=== PATIENT | female | born 1945 | race Caucasian/White ===

== ENCOUNTER 2023-07-16 11:56 | Inpatient (IN) | payer OTHER ==
[~2023-07-16] VITALS: Ht 165.1 cm; Wt 89.8 kg
[2023-07-16 12:01] VITALS: BP_SYST 118; PULSE 89; RESP 18; TEMP 97.6; O2SAT 98
[2023-07-16] MEDS ORDERED: iohexoL 350 mgI/mL, 100 ML INFUS..BTL IV ONE (12:08)
[2023-07-16 12:46] LABS: BASOPHILS # (AUTO) 0.1 K/uL (0.0-0.2); BASOPHILS % (AUTO) 0.6 % (0.0-2.0); EOSINOPHILS # (AUTO) 0.2 K/uL (0.0-0.4); EOSINOPHILS % (AUTO) 2.2 % (0.0-4.0); HEMATOCRIT 37.7 % (36-48); HEMOGLOBIN 11.7 g/dL (12.0-16.0); LYMPHOCYTES # (AUTO) 1.1 K/uL (1.0-5.5); LYMPHOCYTES % (AUTO) 12.8 % (20.5-51.5); MEAN CORPUSCULAR HEMOGLOBIN 27 pg (27-31); MEAN CORPUSCULAR HGB CONC 31 % (32-36); MEAN CORPUSCULAR VOLUME 85 fL (79.0-98.0); MONOCYTES # (AUTO) 0.4 K/uL (0.0-1.0); MONOCYTES % (AUTO) 4.9 % (1.7-9.3); NEUTROPHILS # (AUTO) 6.7 K/uL (1.8-7.7); NEUTROPHILS % (AUTO) 79.5 % (40.0-70.0); PLATELET COUNT (AUTO) 289 K/uL (130-430); RED BLOOD CELL COUNT(AUTO) 4.44 MIL/uL (4.2-6.2); RED CELL DISTRIBUTION WIDTH 14.7 % (9.0-15.0); WHITE BLOOD COUNT (AUTO) 8.4 K/uL (4.8-10.8)
[2023-07-16 12:51] LABS: ANION GAP 9 (5-15); CALCIUM 9.2 mg/dL (8.4-11.0); CARBON DIOXIDE 25 mmol/L (23-29); CHLORIDE 103 mmol/L (98-107); CREATININE 0.66 mg/dL (0.55-1.30); GLUCOSE 179 mg/dL (74-106); POTASSIUM 3.6 mmol/L (3.5-5.1); SODIUM SERUM 137 mmol/L (136-145); UREA NITROGEN, BLOOD 17 mg/dL (8-21)
[2023-07-16 12:54] LABS: INR 1.1 (0.8-1.2); PROTHROMBIN TIME 10.9 SECS (9.5-12.5)
[2023-07-16 12:57] LABS: ALANINE AMINOTRANSFERASE 15 U/L (12-78); ASPARTATE AMINOTRANSFERASE 16 U/L (10-37); BILIRUBIN,DIRECT 0.1 mg/dL (0.0-0.3); CHOLESTEROL 108 mg/dL (<200); HDL CHOLESTEROL 40 mg/dL (>55); TOTAL BILIRUBIN 0.4 mg/dL (0.0-1.0); TRIGLYCERIDES 89 mg/dL (30-150)
[2023-07-16 12:59] LABS: HEMOGLOBIN A1C 7.22 % (<5.7)
[2023-07-16] MEDS ORDERED: ASPIRIN 325 MG TABLET ONE (13:10)
[2023-07-16] MEDS ORDERED: ASPIRIN 325 MG TABLET PO ONE (13:15)
[2023-07-16] MEDS ORDERED: ONDANSETRON HCL 4 MG/2 ML VIAL IVP PRN (15:45)
[2023-07-16] MEDS ORDERED: ACETAMINOPHEN 325 MG TABLET PO PRN ×2 (15:45)
[2023-07-16] MEDS ORDERED: HYDROcodone/ACETAMIN 5-325 MG TAB (NORCO/ VICODIN) PO PRN ×2 (15:45)
[2023-07-16] MEDS ORDERED: EMPA10TA PO (16:36)
[2023-07-16] MEDS ORDERED: ATOR10TA68 PO (16:36)
[2023-07-16] MEDS ORDERED: LOSA50TA28 PO (16:36)
[2023-07-16] MEDS ORDERED: TIRZ5PEN INJ (16:36)
[2023-07-16] MEDS ORDERED: INSU100V9 SQ (16:36)
[2023-07-16] MEDS ORDERED: LEVO112C4 PO (16:36)
[2023-07-16] MEDS ORDERED: GLIP10TA11 PO (16:36)
[2023-07-16] MEDS ORDERED: METO50TA16 PO (16:36)
[2023-07-16] MEDS ORDERED: METF1000 PO (16:36)
[2023-07-16 18:21] VITALS: BP_SYST 118; PULSE 98; RESP 18; TEMP 97.9; O2SAT 95
[2023-07-16 20:00] VITALS: BP_SYST 120; PULSE 101; RESP 20; TEMP 97.7; O2SAT 100
[2023-07-16 20:41] VITALS: BP_SYST 120; PULSE 101; RESP 20; TEMP 97.7
[2023-07-17 00:33] VITALS: BP_SYST 115; PULSE 96; RESP 19; TEMP 97.8; O2SAT 100
[2023-07-17] MEDS ORDERED: ACETAMINOPHEN 500 MG TABLET PO PRN (02:45)
[2023-07-17 04:43] VITALS: RESP 20; TEMP 97.8
[2023-07-17 07:42] LABS: BASOPHILS % (AUTO) 0.4 % (0.0-2.0); EOSINOPHILS # (AUTO) 0.2 K/uL (0.0-0.4); HEMATOCRIT 37.9 % (36-48); LYMPHOCYTES # (AUTO) 1.3 K/uL (1.0-5.5); LYMPHOCYTES % (AUTO) 10.7 % (20.5-51.5); MEAN CORPUSCULAR HEMOGLOBIN 27 pg (27-31); MEAN CORPUSCULAR HGB CONC 32 % (32-36); MEAN CORPUSCULAR VOLUME 84 fL (79.0-98.0); MONOCYTES # (AUTO) 0.6 K/uL (0.0-1.0); MONOCYTES % (AUTO) 5.1 % (1.7-9.3); NEUTROPHILS # (AUTO) 9.7 K/uL (1.8-7.7); NEUTROPHILS % (AUTO) 81.8 % (40.0-70.0); PLATELET COUNT (AUTO) 322 K/uL (130-430); RED BLOOD CELL COUNT(AUTO) 4.52 MIL/uL (4.2-6.2); RED CELL DISTRIBUTION WIDTH 15.3 % (9.0-15.0); WHITE BLOOD COUNT (AUTO) 11.9 K/uL (4.8-10.8)
[2023-07-17 07:47] VITALS: BP_SYST 128; PULSE 93; RESP 18; TEMP 98
[2023-07-17 07:55] LABS: ALANINE AMINOTRANSFERASE 13 U/L (12-78); ANION GAP 9 (5-15); ASPARTATE AMINOTRANSFERASE 21 U/L (10-37); CALCIUM 8.8 mg/dL (8.4-11.0); CARBON DIOXIDE 25 mmol/L (23-29); CHLORIDE 103 mmol/L (98-107); CREATININE 0.51 mg/dL (0.55-1.30); GLUCOSE 158 mg/dL (74-106); POTASSIUM 3.5 mmol/L (3.5-5.1); SODIUM SERUM 137 mmol/L (136-145); TOTAL BILIRUBIN 0.5 mg/dL (0.0-1.0); TOTAL PROTEIN, SERUM 6.2 g/dL (6.4-8.3); UREA NITROGEN, BLOOD 15 mg/dL (8-21)
[2023-07-17] MEDS ORDERED: ATORVASTATIN 10 MG TABLET PO SCH (10:00)
[2023-07-17] MEDS ORDERED: DEXTROSE 50% JECT 50 ML DISP.SYRIN IVP PRN (10:00)
[2023-07-17] MEDS ORDERED: GLUCOSE (DEXTROSE) ORAL GEL -Adults PO PRN (10:00)
[2023-07-17] MEDS: CLOPIDOGREL BISULFATE 75 MG TABLET PO SCH (10:38)
[2023-07-17] MEDS: ASPIRIN 81 MG TAB.CHEW PO SCH (10:38)
[2023-07-17] MEDS ORDERED: ATORVASTATIN 20 MG TABLET PO ONE (11:30)
[2023-07-17] MEDS: INSULIN REGULAR, HUMAN 100 UNITS/ML, 3 ML VIAL (humuLIN R) SUBCUT PRN ×2 (11:40→21:44)
[2023-07-17 15:29] VITALS: BP_SYST 123; PULSE 100; RESP 18; TEMP 98; O2SAT 94
[2023-07-17 19:00] VITALS: BP_SYST 124; PULSE 96; RESP 16; TEMP 97.8; O2SAT 96
[2023-07-17 20:00] VITALS: BP_SYST 124; PULSE 96; RESP 16; TEMP 97.8; O2SAT 96
[2023-07-18 00:20] VITALS: BP_SYST 129; PULSE 93; RESP 20; TEMP 98.5; O2SAT 95
[2023-07-18 05:28] LABS: BASOPHILS % (AUTO) 0.4 % (0.0-2.0); EOSINOPHILS # (AUTO) 0.3 K/uL (0.0-0.4); EOSINOPHILS % (AUTO) 3.2 % (0.0-4.0); HEMATOCRIT 38.7 % (36-48); HEMOGLOBIN 12.4 g/dL (12.0-16.0); LYMPHOCYTES # (AUTO) 0.8 K/uL (1.0-5.5); LYMPHOCYTES % (AUTO) 8.1 % (20.5-51.5); MEAN CORPUSCULAR HEMOGLOBIN 27 pg (27-31); MEAN CORPUSCULAR HGB CONC 32 % (32-36); MEAN CORPUSCULAR VOLUME 83 fL (79.0-98.0); MONOCYTES # (AUTO) 0.7 K/uL (0.0-1.0); MONOCYTES % (AUTO) 6.8 % (1.7-9.3); NEUTROPHILS # (AUTO) 8.4 K/uL (1.8-7.7); NEUTROPHILS % (AUTO) 81.5 % (40.0-70.0); PLATELET COUNT (AUTO) 322 K/uL (130-430); RED BLOOD CELL COUNT(AUTO) 4.67 MIL/uL (4.2-6.2); RED CELL DISTRIBUTION WIDTH 15.3 % (9.0-15.0); WHITE BLOOD COUNT (AUTO) 10.3 K/uL (4.8-10.8)
[2023-07-18 05:37] LABS: ALANINE AMINOTRANSFERASE 14 U/L (12-78); ANION GAP 8 (5-15); ASPARTATE AMINOTRANSFERASE 17 U/L (10-37); CALCIUM 9.6 mg/dL (8.4-11.0); CARBON DIOXIDE 28 mmol/L (23-29); CHLORIDE 103 mmol/L (98-107); GLUCOSE 168 mg/dL (74-106); POTASSIUM 3.2 mmol/L (3.5-5.1); SODIUM SERUM 139 mmol/L (136-145); TOTAL BILIRUBIN 0.6 mg/dL (0.0-1.0); TOTAL PROTEIN, SERUM 6.2 g/dL (6.4-8.3); UREA NITROGEN, BLOOD 10 mg/dL (8-21)
[2023-07-18] MEDS: INSULIN REGULAR, HUMAN 100 UNITS/ML, 3 ML VIAL (humuLIN R) SUBCUT PRN ×2 (06:34→11:40)
[2023-07-18 08:00] VITALS: BP_SYST 132; PULSE 99; RESP 18; TEMP 97.8; O2SAT 96
[2023-07-18] MEDS ORDERED: ATORVASTATIN 20 MG TABLET PO SCH (09:00)
[2023-07-18] MEDS: CLOPIDOGREL BISULFATE 75 MG TABLET PO SCH (09:20)
[2023-07-18] MEDS: ASPIRIN 81 MG TAB.CHEW PO SCH (09:20)
[2023-07-18] MEDS ORDERED: POTASSIUM CHLORIDE 20 MEQ/PKT PACKET PO ONE (11:00)
[2023-07-18] MEDS ORDERED: ATORVASTATIN 20 MG TABLET PO ONE (11:30)
[2023-07-18] MEDS ORDERED: POTASSIUM CHLORIDE 40 MEQ, LIDOCAINE JECT 2% PF 100 MG 50 MG in NS 250 ML IV ONE (12:00)
[2023-07-18] MEDS ORDERED: CLOP75TA32 PO (15:14)
[2023-07-18] MEDS ORDERED: ASA81 PO (15:14)
[2023-07-18] MEDS ORDERED: LIP40 PO (15:14)
[2023-07-18 15:45] VITALS: BP_SYST 132; PULSE 99; RESP 18; TEMP 98; O2SAT 99
== END 2023-07-18 16:20 | disposition home or self-care (01) | DRG 65 ==
LOC: SED 11:56 → STU 15:38
PROVIDERS: ADMIT Family Medicine; ATTEND Family Medicine
DX: I63.9 Cerebral infarction, unspecified (principal); E44.1 Mild protein-calorie malnutrition; I50.22 Chronic systolic (congestive) heart failure; R47.01 Aphasia; R29.810 Facial weakness; I25.10 Atherosclerotic heart disease of native coronary artery without angina pectoris; I44.7 Left bundle-branch block, unspecified; I10 Essential (primary) hypertension; R29.708 NIHSS score 8; E11.9 Type 2 diabetes mellitus without complications; Z95.1 Presence of aortocoronary bypass graft; Z79.4 Long term (current) use of insulin; Z79.899 Other long term (current) drug therapy; Z85.3 Personal history of malignant neoplasm of breast; Z68.32 Body mass index [BMI] 32.0-32.9, adult
CPT/HCPCS: 36415; 70450-TC; 70496; 70498; 70551; 71045; 76376; 80048; 80053; 80061; 80076; 82962; 83037; 84484; 85025; 85610-TC; 85730-TC; 86886; 86900; 86901; 92610-GN; 93005; 93306; 97116-GP; 97163-GP; 99291; G0378; J3480; J7050; Q9967